=== PATIENT | female | born 1945 | race Caucasian/White ===

== ENCOUNTER 2024-09-30 11:13 | Emergency (ER) | payer MEDICARE ==
[~2024-09-30] VITALS: Ht 162.6 cm; Wt 62.2 kg
[2024-09-30] MEDS ORDERED: OXYB10TA23 PO (11:47)
[2024-09-30] MEDS ORDERED: FAMO40TA3 PO (11:47)
[2024-09-30] MEDS ORDERED: ECOT81TA5 PO (11:47)
[2024-09-30 12:16] LABS: BASO # 0.0 10^3/uL (0.0-0.2); BASO % 0.3 % (0.0-1.0); EOS # 0.0 10^3/uL (0.0-0.5); EOS % 0.3 % (0.0-3.0); LYMPH # 2.4 10^3/uL (1.5-5.0); LYMPH % 27.2 % (24.0-44.0); MONO # 0.6 10^3/uL (0.0-0.8); MONO % 6.8 % (2.0-8.0); NEUTROPHILS # 5.6 10^3/uL (1.5-8.5); NEUTROPHILS % 65.2 % (36.0-66.0); PLATELET COUNT, AUTOMATED 161 10^3/uL (150-450)
[2024-09-30 12:33] LABS: INR 0.93
[2024-09-30 12:39] LABS: ALT/SGPT 22 U/L (7.0-40); AST/SGOT 31 U/L (<34); CALCIUM LEVEL 9.6 MG/DL (8.3-10.6); CARBON DIOXIDE LEVEL 25 MMOL/L (20-31); CHLORIDE LEVEL 104 MMOL/L (98-107); CK-MB VALUE MASS < 1.0 NG/ML (<3.6); CREATININE FOR GFR 0.89 MG/DL (0.55-1.30); GLOMERULAR FILTRATION RATE 66.3 (>39); POTASSIUM SERUM 4.5 MMOL/L (3.5-5.1); SODIUM LEVEL 140 MMOL/L (136-145)
[2024-09-30 12:42] LABS: CPK CREATINE PHOSPHOKINASE 59 U/L (34-145)
[2024-09-30 13:40] LABS: CK-MB VALUE MASS 1.1 NG/ML (<3.6)
[2024-09-30 13:42] LABS: CPK CREATINE PHOSPHOKINASE 61.0 U/L (34-145); MB/CK RELATIVE INDEX 1.8 (< OR =4)
[2024-09-30] MEDS ORDERED: ISOVUE-370 76% 100 ML VIAL As Ordered ONE (14:11)
[2024-09-30 16:12] LABS: CK-MB VALUE MASS < 1.0 NG/ML (<3.6)
[2024-09-30 16:16] LABS: CPK CREATINE PHOSPHOKINASE 52 U/L (34-145)
[2024-09-30] MEDS ORDERED: AMLO1TAB24 PO (17:03)
[2024-09-30] MEDS ORDERED: D 1010004 PO (17:03)
[2024-09-30] MEDS ORDERED: COLA100C5 PO (17:03)
[2024-09-30] MEDS ORDERED: EZET10TA21 PO (17:03)
[2024-09-30] MEDS ORDERED: PRAV80TA75 PO (17:03)
[2024-09-30] MEDS ORDERED: HOME MED LIST COMPLETE! XX SCH (17:05)
[2024-09-30 17:13] VITALS: O2SAT 98
[2024-09-30 17:15] VITALS: BP 123/61; TEMP 97.7
== END 2024-09-30 18:07 | disposition home or self-care (01) ==
LOC: M ED 11:13
DX: R07.89 Other chest pain (principal); R91.1 Solitary pulmonary nodule; I25.3 Aneurysm of heart; Z95.2 Presence of prosthetic heart valve; K76.89 Other specified diseases of liver; K21.9 Gastro-esophageal reflux disease without esophagitis
CPT/HCPCS: 71045; 71275; 80048; 80076; 82550; 82553; 84484; 85025; 85610; 87486; 87581; 87633; 87798; 93005; 93041; 94760; 99285; Q9967

== ENCOUNTER → 2024-10-31 | Outpatient (CLI) | payer MEDICARE ==
[~2024-10-31] MED LIST: AMLO1TAB24 PO; COLA100C5 PO; D 1010004 PO; ECOT81TA5 PO; EZET10TA21 PO; FAMO40TA3 PO; OXYB10TA23 PO; PRAV80TA75 PO
== END ==
LOC: M PLARAD 07:32
PROVIDERS: ATTEND Internal Medicine Critical Care Medicine
DX: R91.8 Other nonspecific abnormal finding of lung field (principal)
CPT/HCPCS: 78815; A9552

== ENCOUNTER 2025-01-25 19:22 | Emergency (ER) | payer MEDICARE ==
[~2025-01-25] VITALS: Ht 162.6 cm; Wt 61.4 kg
[~2025-01-25 19:22] MED LIST changes: -EZET10TA21 PO; +EZET10TA57 PO
[2025-01-25 20:03] LABS: BASO # 0.0 10^3/uL (0.0-0.2); BASO % 0.5 % (0.0-1.0); EOS # 0.1 10^3/uL (0.0-0.5); EOS % 0.9 % (0.0-3.0); LYMPH # 2.6 10^3/uL (1.5-5.0); LYMPH % 32.6 % (24.0-44.0); MONO # 0.5 10^3/uL (0.0-0.8); MONO % 6.5 % (2.0-8.0); NEUTROPHILS # 4.7 10^3/uL (1.5-8.5); NEUTROPHILS % 59.1 % (36.0-66.0); PLATELET COUNT, AUTOMATED 236 10^3/uL (150-450)
[2025-01-25 20:32] LABS: CALCIUM LEVEL 9.8 MG/DL (8.3-10.6); CARBON DIOXIDE LEVEL 23 MMOL/L (20-31); CHLORIDE LEVEL 103 MMOL/L (98-107); CK-MB VALUE MASS < 1.0 NG/ML (<3.6); CPK CREATINE PHOSPHOKINASE 86 U/L (34-145); CREATININE FOR GFR 0.84 MG/DL (0.55-1.30); GLOMERULAR FILTRATION RATE 71.1 (>39); POTASSIUM SERUM 5.2 MMOL/L (3.5-5.1); SODIUM LEVEL 139 MMOL/L (136-145)
[2025-01-25] MEDS ORDERED: ISOVUE-370 76% 100 ML VIAL As Ordered ONE (20:55)
[2025-01-25] MEDS ORDERED: TRAM50TA2 PO (21:02)
[2025-01-25] MEDS ORDERED: MEDR4PAK PO (21:02)
[2025-01-25] MEDS ORDERED: ONDA-282 PO (21:02)
[2025-01-25] MEDS: NS 500 ML IV ONE (21:11)
[2025-01-25 21:30] LABS: CK-MB VALUE MASS < 1.0 NG/ML (<3.6)
[2025-01-25 21:31] LABS: CPK CREATINE PHOSPHOKINASE 58 U/L (34-145)
[2025-01-25 22:15] LABS: ALT/SGPT 37 U/L (7.0-40); AST/SGOT 67 U/L (<34)
[2025-01-25 22:33] VITALS: BP 123/64; O2SAT 98
[2025-01-25 22:54] VITALS: TEMP 97.4
== END 2025-01-25 22:56 | disposition home or self-care (01) ==
LOC: M ED 19:22
DX: K80.20 Calculus of gallbladder without cholecystitis without obstruction (principal); M54.6 Pain in thoracic spine; R68.84 Jaw pain; R06.02 Shortness of breath; Z79.82 Long term (current) use of aspirin; Z79.899 Other long term (current) drug therapy
CPT/HCPCS: 71045; 71275; 76705; 80048; 80076; 82550; 82553; 83880; 84484; 85025; 93005; 93041; 94760; 96360; 96361; 99285; Q9967